=== PATIENT | male | born 1975 | race Caucasian/White ===

== ENCOUNTER 2025-01-20 18:02 | Emergency (ER) | payer MEDICARE, SELFPAY ==
[2025-01-20 18:27] VITALS: BP 153/126; PULSE 107; RESP 18; TEMP 36.7; O2SAT 97
--- NOTE | 2025-01-20 18:58 | CTR_ITS ---
PROCEDURE INFORMATION: Exam: CT Head Without Contrast Exam date and time: 01/20/2025 7:07 PM Age: 49 years old Clinical indication: Altered mental status/memory loss; Confusion or disorientation; Additional info: AMS TECHNIQUE: Imaging protocol: Computed tomography of the head without contrast. Radiation optimization: All CT scans at this facility use at least one of these dose optimization techniques: automated exposure control; mA and/or kV adjustment per patient size (includes targeted exams where dose is matched to clinical indication); or iterative reconstruction. COMPARISON: No relevant prior studies available. RADIATION DOSE METRICS: Total DLP (mGy-cm): 1221.33 FINDINGS: Brain: Normal. No hemorrhage. Unremarkable white matter. No mass effect. Cerebral ventricles: No ventriculomegaly. Paranasal sinuses: Small mucous retention cysts in the right maxillary sinus. No fluid levels. Mastoid air cells: Visualized mastoid air cells are well aerated. Bones: Unremarkable. No acute fracture. Soft tissues: Unremarkable. CT/CT head wo con* [id number] IMPRESSION: No acute intracranial findings.
[2025-01-20 19:13] LABS: Basophils # 0.1 10^3/uL (0.0-0.1); Basophils % 0.5 %; Hematocrit 44.7 % (37-53); Lymphocytes # 1.8 10^3/uL (0.8-4.8); Mean Corpuscular HGB Conc 32.7 g/dL (30-55); Mean Corpuscular Hemoglobin 31.3 pg (27-33); Mean Corpuscular Volume 95.7 fl (82-101); Mean Platelet Volume 9.2 fL (7.4-10.4); Monocytes % 7.6 %; Neutrophils # 9.86 10^3/uL (1.8-7.7); Neutrophils % 77.5 %; Nucleated Red Blood Cells % 0 %; Platelet Count 292 10^3/cmm (157-399); Red Blood Count 4.67 10^6/uL (3.85-5.65); Red Cell Distribution Width 13.2 % (12.1-15.1); White Blood Count 12.72 10^3/uL (3.29-11.43)
--- NOTE | 2025-01-20 19:33 | W.ED.PSYCHS ---
HPI - Psych General: Chief Complaint: Psychiatric Symptoms Stated Complaint: mhe Time Seen by Provider: 01/20/25 18:23 History of Present Illness: 49-year-old male patient unknown to the emergency department over this system. He presents with bizarre erratic behavior. He is brought in by EMS. Supposedly he had made a suicidal statement, which he denies. He is tough to interview, as he is very distracted, and only answers some questions. His main complaint is that he has a tick embedded on his back. He denies fever or recent illness. He states that he is here for my shot, Invega sustain . He is not homicidal or suicidal. He does appear to talk to himself or other stimuli in the room. He states he would like to be discharged, and go to a homeless senior living. Physical Exam Const: COMMON NORMALS: no acute distress and alert EXAM LIMITATIONS: altered mental status and behavioral limitations GENERAL APPEARANCE: not ill appearing and not frail appearing ORIENTATION/CONSCIOUSNESS: Yes awake HENMT: COMMON NORMALS: normocephalic, atraumatic and Normal external nose present HEAD & SCALP: normocephalic and atraumatic FACE & SINUS: normal facial exam NOSE: Normal external nose present Eye: COMMON NORMALS: Equal, round and reactive pupils present and EOMs intact bilaterally PUPIL: Yes Equal, round and reactive pupils present Neck/C-Spine: COMMON NORMALS: full ROM GENERAL: Yes trachea midline Chest: CHEST: Yes Symmetrical chest wall rise Resp: COMMON NORMALS: normal respiratory effort, No use of accessory muscles and clear to auscultation bilaterally AUSCULTATION: clear to auscultation bilaterally Cardio: COMMON NORMALS: regular rate and regular rhythm RATE: regular rate RHYTHM: regular rhythm GI: INSPECTION: Yes normal to inspection Neuro: SENSORIUM/ORIENTATION: Yes alert Skin: NARRATIVE SKIN EXAM: Multiple insect bites on trunk. Tick embedded in the skin over right scapula. Course Vital Signs: Vital signs: Vital Signs Temperature 98.0 F 01/20/25 18:27 Pulse Rate 107 H 01/20/25 18:27 Respiratory Rate 18 01/20/25 18:27 Blood Pressure 153/126 01/20/25 18:27 Pulse Oximetry 97 01/20/25 18:27 Oxygen Delivery Me thod Room Air 01/20/25 18:27 MDM - Psych Medical Decision Making 49-year-old male with an unknown history to this hospital system. He is exhibiting quite bizarre behavior. He is responding to external stimuli. Having visual hallucinations. He is seeing dark shadows he says. He currently denies suicidal ideation. We spoke with his mother over the phone who was coming in to write an affidavit. She says that he was making suicidal statements at home, and she is afraid he will harm himself. He has not been regimented and has been noncompliant with his medication. She says that he has in the past been admitted around once a year after becoming noncompliant with his medications. They recently moved from [place]. Medically, he is quite stable. He has been mostly cooperative to this point. Laboratory is not remarkable. COVID flu RSV swabs are negative. Head CT and chest x-ray are nonacute. EKG is normal. Currently we do not have neuropsychiatry beds available at this facility. He will require transfer. Attempting to call facilities medically, he is stable. Lab Data 01/20/25 19:07 01/20/25 19:[address] 01/20/25 18:58 IMPRESSION: No acute intracranial findings. Chest X-Ray 01/20/25 20:33 IMPRESSION: No acute findings. Laboratory Results WBC 12.72 10^3/uL (3.29-11.43) H 01/20/25 19:07 RBC 4.67 10^6/uL (3.85-5.65) 01/20/25 19:07 Hgb 14.60 g/dL (11.27-16.99) 01/20/25 19:07 Hct 44.7 % (37-53) 01/20/25 19:07 MCV 95.7 fl (82-101) 01/20/25 19:07 MCH 31.3 pg (27-33) 01/20/25 19:07 MCHC 32.7 g/dL (30-55) 01/20/25 19:07 RDW 13.2 % (12.1-15.1) 01/20/25 19:07 Plt Count 292 10^3/cmm (157-399) 01/20/25 19:07 MPV 9.2 fL (7.4-10.4) 01/20/25 19:07 Neut % (Auto) 77.5 % 01/20/25 19:07 Lymph % (Auto) 14.0 % 01/20/25 19:07 [place] % (Auto) 7.6 % 01/20/25 19:07 Eos % (Auto) 0.0 % 01/20/25 19:07 Baso % (Auto) 0.5 % 01/20/25 19:07 Neut # (Auto) 9.86 10^3/uL (1.8-7.7) H 01/20/25 19:07 Lymph # (Auto) 1.8 10^3/uL (0.8-4.8) 01/20/25 19:07 [place] # (Auto) 1.0 10^3/uL (0.2-0.9) H 01/20/25 19:07 Eos # (Auto) 0.0 10^3/uL (0.0-0.8) 01/20/25 19:07 Baso # (Auto) 0.1 10^3/uL (0.0-0.1) 01/20/25 19:07 Nucleated RBC % (auto) 0 % 01/20/25 19:07 Nucleated RBCs # 0.0 /100WBC 01/20/25 19:07 Sodium 140 mmol/L (136-145) 01/20/25 19:07 Potassium 3.8 mmol/L (3.5-5.1) 01/20/25 19:07 Chloride 102 mmol/L (98-107) 01/20/25 19:07 Carbon Dioxide 27 mmol/L (22-29) 01/20/25 19:07 Anion Gap 14.8 (5-19) 01/20/25 19:07 BUN 11 mg/dL (6-20) 01/20/25 19:07 Creatinine 0.9 mg/dL (0.7-1.2) 01/20/25 19:07 GFR Calculation 90.1 mL/min (90-130) 01/20/25 19:07 Glucose 87 mg/dL (65-115) 01/20/25 19:07 Calculated Osmolality 289 mOsm/kg (285-295) 01/20/25 19:07 Calcium 9.8 mg/dL (8.5-10.5) 01/20/25 19:07 Total Bilirubin 0.2 mg/dL (0.15-1.2) 01/20/25 19:07 AST 16 U/L (0-40) 01/20/25 19:07 ALT 34 U/L (0-41) 01/20/25 19:07 Alkaline Phosphatase 51 U/L (40-130) 01/20/25 19:07 Total Protein 6.8 g/dL (6.6-8.7) 01/20/25 19:07 Albumin 4.0 g/dL (3.5-5.2) 01/20/25 19:07 Globulin 2.8 g/dL (1.3-4.6) 01/20/25 19:07 TSH 0.85 uIU/mL (0.27-4.20) 01/20/25 19:07 Amorphous Sediment Not Reportable 01/20/25 22:51 Salicylates < 0.3 mg/dL (3-10) L 01/20/25 19:07 Acetaminophen < 5.0 ug/mL (10-30) L 01/20/25 19:07 Ethyl Alcohol < 10 mg/dL (0-10) 01/20/25 19:07 Influenza A (PCR) Negative (Negative) 01/20/25 22:03 Influenza Type B (PCR) Negative (Negative) 01/20/25 22:03 RSV (PCR) Negative (Negative) 01/20/25 22:03 SARS-CoV-2 (PCR) Negative (Negative) 01/20/25 22:03 All radiology interpretation(s) finalized by discharge Discharge Plan Discharge Patient Disposition: Xfer Psychiatric Hosp Clinical Impression: Acute psychosis, Chronic schizophrenia, Suicidal ideation Condition: Stable Print Language: Uzbek Coding Level of Care Code ED Literature Teacher for Ingrid Simmons
[2025-01-20 19:42] LABS: Alanine Aminotransferase 34 U/L (0-41); Alkaline Phosphatase 51 U/L (40-130); Anion Gap 14.8 (5-19); Aspartate Amino Transferase 16 U/L (0-40); Blood Urea Nitrogen 11 mg/dL (6-20); Calcium 9.8 mg/dL (8.5-10.5); Carbon Dioxide 27 mmol/L (22-29); Chloride 102 mmol/L (98-107); Globulin 2.8 g/dL (1.3-4.6); Glomerular Filtration Rate 90.1 mL/min (90-130); Glucose 87 mg/dL (65-115); Osmolality Calculated 289 mOsm/kg (285-295); Potassium 3.8 mmol/L (3.5-5.1); Sodium 140 mmol/L (136-145); Thyroid Stimulating Hormone 0.85 uIU/mL (0.27-4.20); Total Bilirubin 0.2 mg/dL (0.15-1.2); Total Protein 6.8 g/dL (6.6-8.7)
[2025-01-20 19:48] LABS: Acetaminophen < 5.0 ug/mL (10-30); Alcohol Level < 10 mg/dL (0-10); Salicylate < 0.3 mg/dL (3-10)
--- NOTE | 2025-01-20 20:33 | XRR_ITS ---
PROCEDURE INFORMATION: Exam: XR Chest Exam date and time: 01/20/2025 8:35 PM Age: 49 years old Clinical indication: Screening exam; Other screening; Additional info: Medical clearance TECHNIQUE: Imaging protocol: Radiologic exam of the chest. Views: 1 view. COMPARISON: No relevant prior studies available. FINDINGS: Lungs: Unremarkable. No consolidation. Pleural spaces: Unremarkable. No pleural effusion. No pneumothorax. Heart/Mediastinum: Unremarkable. No cardiomegaly. Bones/joints: Unremarkable. XR/XR chest 1V portable [id number] IMPRESSION: No acute findings.
--- NOTE | 2025-01-20 22:00 | ECG_ITS ---
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 Measurements Intervals [place] Rate: 90 P: 59 WA: 177 QRS: 88 QRSD: 77 T: 51 QT: 334 QTc: 410 Interpretive Statements SINUS RHYTHM No previous ECG available for comparison Electronically Signed On 01-21-2025 09:16:20 CDT by Gavin Pacheco M.D. [id number]
--- NOTE | 2025-01-20 22:16 | PC.NURSE ---
96 Hour Hold Education provided to patient regarding placement under a 96 hour hold. Rights read to patient and left at bedside, security at bedside. When asked if patient had any questions, patient stated no, ma'am.
[2025-01-20] MEDS: nicotine 21 mg Patch 1 PATCH TRANSDERMA (22:26)
[2025-01-20 22:56] LABS: Add Urine Microscopic? NO
[2025-01-20 22:57] LABS: Influenza A NEGATIVE (Negative); Influenza B NEGATIVE (Negative); Respiratory Syncytial Virus Ce NEGATIVE (Negative); SARS-CoV-2 PCR NEGATIVE (Negative)
[2025-01-20 23:04] LABS: Bacteria Urine None Seen /hpf; Hyaline Casts Urine 0-4 /lpf; RBC Urine 0-2 /hpf (0-2); Squamous Epithelial Cell Urine 0-5 /hpf (0-5); WBC Urine 0-5 /hpf (0-5)
[2025-01-20 23:07] LABS: Amphetamines Screen Urine Negative (Negative); Barbiturates Screen Urine Negative (Negative); Benzodiazepines Screen Urine Negative (Negative); Cocaine Screen Urine Negative (Negative); Opiate Screen Urine Negative (Negative); PCP Screen Urine Negative (Negative); THC Screen Urine Positive (Negative)
[2025-01-20 23:11] LABS: Bilirubin Urine Negative (Negative); Blood Urine Negative (Negative); Charge for UA Resulting for Rev; Glucose Urine UA Negative (Normal); Ketones Urine Negative (Negative); Leukocyte Esterase Urine Negative (Negative); Nitrate Urine Negative (Negative); Protein Urine Negative (Negative); Specific Gravity, Urine 1.006 (1.005-1.030); Urine Appearance Clear (CLEAR); Urine Color Yellow (Yellow); Urobilinogen Urine 0.2 mg/dL (Negative); pH Urine 7.5 (5-7)
[2025-01-21 00:55] VITALS: BP 132/89; PULSE 88; RESP 16; O2SAT 98
--- NOTE | 2025-01-21 00:55 | PC.NURSE ---
Report called to Marcella Barrera RN at [facility]
--- NOTE | 2025-01-21 09:12 | PC.NURSE ---
pt currently sleeping in bed with 18 rpm and unlabored breathing.
[2025-01-21 09:36] VITALS: RESP 18; O2SAT 96
[2025-01-21 14:15] VITALS: BP 148/75; PULSE 91; O2SAT 99
== END 2025-01-21 14:15 ==
PROVIDERS: Emergency Medicine; Emergency Provider Family Medicine
DX: F20.89 Other schizophrenia (principal); R45.851 Suicidal ideations; Z11.52 Encounter for screening for COVID-19
CPT/HCPCS: 70450; 71045; 80053; 80306; 80307; 81003; 84443; 85025; 87637; 93005; 99285; J9999

== ENCOUNTER 2025-03-20 11:05 | Inpatient (IN) | payer MEDICARE, SELFPAY ==
--- NOTE | 2025-03-20 11:07 | ECG_ITS ---
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 Measurements Intervals [place] Rate: 72 P: 60 DC: 193 QRS: 82 QRSD: 89 T: 60 QT: 384 QTc: 421 Interpretive Statements SINUS RHYTHM Compared to ECG 01/20/2025 22:00:19 No significant changes Electronically Signed On 03-21-2025 08:55:02 CDT by Gavin Pacheco M.D. [id number] [id number]
[2025-03-20 11:09] VITALS: BP 142/97; PULSE 86; RESP 18; TEMP 36.8; O2SAT 94; BMI 22.9
--- NOTE | 2025-03-20 11:33 | ED.C_ITS ---
HPI - Psych 2 General: Chief Complaint: Psychiatric Symptoms Stated Complaint: MHE, 96 Time Seen by Provider: 03/20/25 11:07 History of Present Illness: 50-year-old man who presents to the [facility] room by ambulance with a 96-hour hold from [facility]. Report is he is going through psychosis. He is mumbling and incoherent. Does not answer questions. He was here a couple months ago with similar type behavior. He was not admitted at that time. Related Data Home Medications ?Medication ?Instructions ?Recorded ?Confirmed Unable to Assess 01/21/25 03/20/25 Allergies Allergy/AdvReac Type Severity Reaction Status Date / Time No Known Allergies Allergy Unverified 03/20/25 12:04 Review of Systems 2 General: Reports: ROS unobtainable due to mental status Physical Exam 2 Narrative: EXAM NARRATIVE: General: Alert. no acute distress Skin: Warm, dry Head: Normocephalic, atraumatic. Neck: Supple, trachea midline. Eye: Extraocular movements are intact. Ears, nose, mouth and throat: Oral mucosa moist. Cardiovascular: Regular rate and rhythm, Normal peripheral perfusion. Respiratory: Lungs are clear to auscultation, respirations are non-labored, breath sounds are equal, Symmetrical chest wall expansion. Gastrointestinal: Soft, Nontender, Non distended Musculoskeletal: Normal ROM, no deformity. Neurological: No focal neurological deficit observed. Psychiatric: Patient is mumbling incoherently. Course 2 Vital Signs: Vital signs: Vital Signs Temperature 98.3 F 03/20/25 11:09 Pulse Rate 86 03/20/25 11:09 Respiratory Rate 18 03/20/25 11:09 Blood Pressure 142/97 03/20/25 11:09 Pulse Oximetry 94 03/20/25 11:09 Oxygen Delivery Me thod Room Air 03/20/25 11:09 MDM - Psych Medical Decision Making Medical decision making: Differential diagnosis for patient with reported psychosis with plan for psychiatric admission including but not limited to and based on the above HPI, review of systems and physical exam: concerns for infection, alcohol intoxication, cardiac issues or other medical problems prior to psychiatric admission. Orders placed to evaluate differential diagnosis based on the above differential, HPI and physical exam labwork, ekg ordered to evaluate the pathologies and to clear the patient medically prior to psychiatric admission Lab Review: Laboratory results were reviewed and interpreted by myself the emergency room physician. - Medically cleared. - EKG shows no ischemic changes. - Blood alcohol level is negative, as well as salicylate and Tylenol. - Drug screen is positive for marijuana - No signs of infection, urinalysis clear and white count is not elevated - No anemia. - BUN and creatinine are within normal limits. I reviewed the patient's medical record. He has had 1 previous ER visit with similar type behavior in the past and was discharged home at that time. Consultation: I spoke with Dr. Urbano who is on-call for the hospital service who agrees to admission. Assessment and plan: Psychosis ?96-hour hold was placed. -Admission to neuropsychiatric unit for continued evaluation and treatment. - All lab work was reviewed and interpreted personally by myself, the ER physician - Evaluation and treatment of this problem were appropriate in the emergency setting Lab Data 03/20/25 11:30 03/20/25 11:30 Laboratory Results WBC 9.13 10^3/uL (3.29-11.43) 03/20/25 11:30 RBC 4.29 10^6/uL (3.85-5.65) 03/20/25 11:30 Hgb 13.20 g/dL (11.27-16.99) 03/20/25 11:30 Hct 41.5 % (37-53) 03/20/25 11:30 MCV 96.7 fl (82-101) 03/20/25 11:30 MCH 30.8 pg (27-33) 03/20/25 11:30 MCHC 31.8 g/dL (30-55) 03/20/25 11:30 RDW 14.6 % (12.1-15.1) 03/20/25 11:30 Plt Count 274 10^3/cmm (157-399) 03/20/25 11:30 MPV 9.1 fL (7.4-10.4) 03/20/25 11:30 Neut % (Auto) 60.4 % 03/20/25 11:30 Lymph % (Auto) 29.6 % 03/20/25 11:30 [place] % (Auto) 8.9 % 03/20/25 11:30 Eos % (Auto) 0.0 % 03/20/25 11:30 Baso % (Auto) 0.8 % 03/20/25 11:30 Neut # (Auto) 5.52 10^3/uL (1.8-7.7) 03/20/25 11:30 Lymph # (Auto) 2.7 10^3/uL (0.8-4.8) 03/20/25 11:30 [place] # (Auto) 0.8 10^3/uL (0.2-0.9) 03/20/25 11:30 Eos # (Auto) 0.0 10^3/uL (0.0-0.8) 03/20/25 11:30 Baso # (Auto) 0.1 10^3/uL (0.0-0.1) 03/20/25 11:30 Nucleated RBC % (auto) 0 % 03/20/25 11:30 Nucleated RBCs # 0.0 /100WBC 03/20/25 11:30 Sodium 142 mmol/L (136-145) 03/20/25 11:30 Potassium 4.0 mmol/L (3.5-5.1) 03/20/25 11:30 Chloride 106 mmol/L (98-107) 03/20/25 11:30 Carbon Dioxide 25 mmol/L (22-29) 03/20/25 11:30 Anion Gap 15.0 (5-19) 03/20/25 11:30 BUN 12 mg/dL (6-20) 03/20/25 11:30 Creatinine 0.6 mg/dL (0.7-1.2) L 03/20/25 11:30 GFR Calculation 143.2 mL/min (90-130) H 03/20/25 11:30 Glucose 116 mg/dL (65-115) H 03/20/25 11:30 Calculated Osmolality 295 mOsm/kg (285-295) 03/20/25 11:30 Calcium 9.1 mg/dL (8.5-10.5) 03/20/25 11:30 Total Bilirubin 0.2 mg/dL (0.15-1.2) 03/20/25 11:30 AST 12 U/L (0-40) 03/20/25 11:30 ALT 16 U/L (0-41) 03/20/25 11:30 Alkaline Phosphatase 52 U/L (40-130) 03/20/25 11:30 Total Protein 6.9 g/dL (6.6-8.7) 03/20/25 11:30 Albumin 4.0 g/dL (3.5-5.2) 03/20/25 11:30 Globulin 2.9 g/dL (1.3-4.6) 03/20/25 11:30 TSH 0.58 uIU/mL (0.27-4.20) 03/20/25 11:30 Urine Color Yellow (Yellow) 03/20/25 11:23 Urine Appearance Clear (CLEAR) 03/20/25 11:23 Urine pH 7.0 (5-7) 03/20/25 11:23 Ur Specific [place] 1.005 (1.005-1.030) 03/20/25 11:23 Urine Protein Negative (Negative) 03/20/25 11:23 Urine Glucose (UA) Negative (Normal) 03/20/25 11:23 Urine Ketones Negative (Negative) 03/20/25 11:23 Urine Blood Negative (Negative) 03/20/25 11:23 Urine Nitrate Negative (Negative) 03/20/25 11:23 Urine Bilirubin Negative (Negative) 03/20/25 11:23 Urine Urobilinogen 0.2 mg/dL (Negative) 03/20/25 11:23 Ur Leukocyte Esterase Negative (Negative) 03/20/25 11:23 Urine RBC 0-2 /hpf (0-2) 03/20/25 11:23 Urine WBC 0-5 /hpf (0-5) 03/20/25 11:23 Ur Squamous Epith Cells 0-5 /hpf (0-5) 03/20/25 11:23 Amorphous Sediment Not Reportable 03/20/25 11:23 Urine Bacteria None seen /hpf (NONE) 03/20/25 11:23 Hyaline Casts 0-4 /lpf H 03/20/25 11:23 Salicylates < 0.3 mg/dL (3-10) L 03/20/25 11:30 Urine Opiates Screen Negative ng/mL (Negative) 03/20/25 11:23 Acetaminophen < 5.0 ug/mL (10-30) L 03/20/25 11:30 Ur Barbiturates Screen Negative ng/mL (Negative) 03/20/25 11:23 Ur Phencyclidine Scrn Negative ng/mL (Negative) 03/20/25 11:23 Ur Amphetamines Screen Negative ng/mL (Negative) 03/20/25 11:23 U Benzodiazepines Scrn Negative ng/mL (Negative) 03/20/25 11:23 Urine Cocaine Screen Negative ng/mL (Negative) 03/20/25 11:23 U Marijuana (THC) Screen Positive ng/mL (Negative) H 03/20/25 11:23 Ethyl Alcohol < 10 mg/dL (0-10) 03/20/25 11:30 No radiology studies performed this visit Discharge Plan Discharge Patient Disposition: Admitted As Inpatient Clinical Impression: Acute psychosis Condition: Stable Coding Level of Care Code ED Business Development for Ingrid Simmons
[2025-03-20 11:38] LABS: Hematocrit 41.5 % (37-53); Hemoglobin 13.20 g/dL (11.27-16.99); Mean Corpuscular HGB Conc 31.8 g/dL (30-55); Mean Corpuscular Hemoglobin 30.8 pg (27-33); Mean Corpuscular Volume 96.7 fl (82-101); Nucleated Red Blood Cells % 0 %; Platelet Count 274 10^3/cmm (157-399); Red Blood Count 4.29 10^6/uL (3.85-5.65); White Blood Count 9.13 10^3/uL (3.29-11.43)
[2025-03-20 11:46] LABS: Glucose Urine UA Negative (Normal); Nitrate Urine Negative (Negative); Specific Gravity, Urine 1.005 (1.005-1.030)
[2025-03-20 11:48] LABS: Add Urine Microscopic? YES
[2025-03-20 11:53] LABS: PCP Screen Urine Negative (Negative)
--- NOTE | 2025-03-20 12:01 | PC.PHAR ---
Pt had medications sent to [facility] on 02/19/25. Pt never picked them up. New rx's on hold from 02/19/25 are: Haloperidol decanoate 100mg/ml-1ml im x30qlva Clorpromazine 25mg -75mg po tid Lisinopril 10mg-daily Hydrochlorothiazide 12.5mg daily White Petrolatum-apply topically tid No allergies listed on pt profile
[2025-03-20 12:15] LABS: Alanine Aminotransferase 16 U/L (0-41); Albumin Level 4.0 g/dL (3.5-5.2); Alkaline Phosphatase 52 U/L (40-130); Anion Gap 15.0 (5-19); Aspartate Amino Transferase 12 U/L (0-40); Blood Urea Nitrogen 12 mg/dL (6-20); Calcium 9.1 mg/dL (8.5-10.5); Carbon Dioxide 25 mmol/L (22-29); Chloride 106 mmol/L (98-107); Creatinine Clr Calc Pharmacy 153.4150; Globulin 2.9 g/dL (1.3-4.6); Glucose 116 mg/dL (65-115); Osmolality Calculated 295 mOsm/kg (285-295); Potassium 4.0 mmol/L (3.5-5.1); Sodium 142 mmol/L (136-145); Thyroid Stimulating Hormone 0.58 uIU/mL (0.27-4.20); Total Protein 6.9 g/dL (6.6-8.7)
[2025-03-20 12:23] LABS: Acetaminophen < 5.0 ug/mL (10-30); Alcohol Level < 10 mg/dL (0-10); Salicylate < 0.3 mg/dL (3-10)
[2025-03-20 12:55] VITALS: BP 145/87; PULSE 81; RESP 17; O2SAT 95
--- NOTE | 2025-03-20 13:08 | PC.NURSE ---
96 hr rights reviewed with pt @1128 with assistance of [facility] credit risk officer Molina Mackey. All education reviewed with pt at this time. No verbalized concerns mentioned to this HS about hold parameters. However, pt did seem to understand hold, but also had jumbled words towards end part of each sentence. HS left a patient copy of rights with pt @bedside. Pt provided a milk and had a sandwich. No other needs assessed at this time.
[2025-03-20 15:02] VITALS: BP 135/93; BP 137/94; PULSE 68; PULSE 86; RESP 18; TEMP 36.4; O2SAT 97
[2025-03-20 20:00] VITALS: BP 136/81; PULSE 71; RESP 20; TEMP 36.7; O2SAT 95
[2025-03-20 22:00] VITALS: BP 136/81; PULSE 78; RESP 20; TEMP 36.7; O2SAT 95
[2025-03-21 06:00] VITALS: BP 125/73; PULSE 74; RESP 18; TEMP 36.4; O2SAT 95
--- NOTE | 2025-03-21 08:46 | NUR.SHIFT ---
Pt states that he slept okay He states that he doesn't have any anxiety of depression, he is just in here because his mother couldn't afford to buy the pills this month. He denies SI/HI or hallucinations. No reports of pain. He is calm and cooperative with assessment.
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
[2025-03-21] MEDS: paliperidone ER 6 mg Tablet PO (13:52)
[2025-03-21 14:00] VITALS: BP 145/105; PULSE 87; RESP 17; TEMP 36.6; O2SAT 97
[2025-03-21 20:30] VITALS: BP 144/97; PULSE 91; RESP 19; TEMP 36.7; O2SAT 96
[2025-03-22 06:00] VITALS: BP 143/91; PULSE 92; RESP 16; TEMP 36.5; O2SAT 94
[2025-03-22] MEDS: paliperidone ER 6 mg Tablet PO (08:48)
--- NOTE | 2025-03-22 09:00 | PC.NURSE ---
Pt. came up to signee and said he cut his legs off and decided to regrow them because he wanted a son.
[2025-03-22 14:00] VITALS: BP 122/78; PULSE 92; RESP 16; TEMP 36.6; O2SAT 94
--- NOTE | 2025-03-22 15:19 | P.NPUPN_ITS ---
Subjective NPU 2 Subjective: 50-year-old male with schizophrenia admi tted with psychosis with disorganized thinking and disorganized behavior on admission. Patient continued to have evidence of illogical thoughts as he had stated that he was crawling body parts that were replacing other body parts. He reports that he was sure that his thoughts were yellow but possibly blue. The patient had not been aggressive. He had reported no side effects from his Invega at this time and had indicated that he had previously done better on this medication but admitted to not having taken his medication for several months. Mental Status Exam 2 MSE Comments: Patient was a disheveled white male slightly overweight who was somewhat paranoid on interview with poor hygiene and normal gait. There was evidence of mild psychomotor agitation. His speech was productive and easier to understand with the use of nonsequiters with normal volume appreciated. His mood was described as allright. His affect was mood incongruent and somewhat irritable. His thought process was nonlinear and showed evidence of looseness of associations. His thought content showed no evidence of homicidal or suicidal ideation. There was evidence of delusional thinking. He did appear to be responding to internal stimuli and endorsed hearing a voice. Bizarre delusions appreciated. His attention span was poor. He was alert and oriented to person and place along with the year and month but not date or day of the week. His recent and remote memory appeared poor. His insight is poor. His judgment appeared poor. His impulse control appeared impaired. Vitals/I&O/Wt Last Vital Signs Temp 98 F 03/22/25 14:00 Pulse 92 03/22/25 14:00 Resp 16 03/22/25 14:00 BP 122/78 03/22/25 14:00 Pulse Ox 94 03/22/25 14:00 O2 Del Method Room Air 03/22/25 06:00 Data NPU 03/20/25 11:30 03/20/25 11:30 A&P Assessment and plan (1) Schizophrenia, paranoid type: Plan 50-year-old male with a history of schizophrenia currently not taking medications with paranoia and auditory hallucinations along with disorganized thinking. He was agreeable with restarting Invega sustenna IM to target psychosis. #1.? Engage patient in individual milieu and group therapy. #2?? Recommend sober living treatment at the highest level of care to which the patient is willing to commit #3??? Start oral invega 6mg daily with Invega 234mg IM to be given today or tommorow. #4?? TO-15 minute checks? #5?? Will attempt to gather collateral information PDMP PDMP Reviewed: Not Reviewed Involuntary Hold Information 2 Hold Status: Legal Status: 96 Hour Hold Date/Time Hold Expires: 03/27/25 @ 11:19 Attestations NPU 2 Medical Necessity Statement*: Inpatient hospitalization is medically necessary and deemed to be the clinically appropriate intervention at this time. Medications will be adjusted and initiated as indicated.? The patient?s likely length of stay is 7-10 days. ? Coding Level of Care Code Acute Code for Chg Fwd Diagnoses Schizophrenia, paranoid type F20.0
[2025-03-22] MEDS: paliperidone palmitate 234 mg Syringe IM (16:17)
[2025-03-22 20:56] VITALS: BP 121/80; PULSE 90; RESP 18; TEMP 37.1; O2SAT 95
[2025-03-23 06:00] VITALS: BP 114/76; PULSE 90; RESP 16; TEMP 37.1; O2SAT 96
[2025-03-23] MEDS: paliperidone ER 6 mg Tablet PO (08:18)
[2025-03-23] MEDS: diphenhydrAMINE 50 mg/mL SDV 1mL IM (11:31)
[2025-03-23] MEDS: LORazepam 1 MG/0.5 ML injection 2 MG IM (11:32)
[2025-03-23] MEDS: haloperidol inj 5 mg/mL INJ 1 mL IM (11:33)
--- NOTE | 2025-03-23 12:57 | PC.NURSE ---
PRN MED PT GIVEN 5MG HALDOL IM ,2 MG ATIVAN IM, AND 50MG BENADRYL IM, PT WAS GETTING, ANXIOUS, AND GETTING MORE ANGRY WITH STAFF, WE ASK PT IF HE WANTED MEDS AND PT SAID LIGHT ME UP. PT TOOK SHOT WITH NO RESISTANCE, WILL CONTINUE TO MONITOR.
[2025-03-23 14:00] VITALS: BP 120/83; PULSE 95; RESP 18; TEMP 36.6; O2SAT 97
--- NOTE | 2025-03-23 17:02 | P.NPUPN_ITS ---
Subjective NPU 2 Subjective: 50-year-old male with schizophrenia admi tted with psychosis with disorganized thinking and disorganized behavior on admission. The patient reported no side effects from his medication regimen. He continued to be somewhat guarded. He had required additional as needed medications for agitation today. He continued to report feeling that his body part was fading away and being replaced by another body. He reported that he was from a special group of people that had mahoney of conversion. Mental Status Exam 2 MSE Comments: Patient was a disheveled white male slightly overweight who was somewhat paranoid on interview with poor hygiene and normal gait. There was evidence of mild psychomotor agitation. His speech was productive and easier to understand with the use of nonsequiters with normal volume appreciated. His mood was described as good. His affect was subdued today. His thought process was linear but derailed quickly. His thought content showed no evidence of homicidal or suicidal ideation. There was evidence of bizarre delusions. He did appear to be responding to internal stimuli and endorsed hearing a voice. His attention span was poor. He was alert and oriented to person and place along with the year and month but not date or day of the week. His recent and remote memory appeared poor. His insight is poor. His judgment appeared poor. His impulse control appeared impaired. Vitals/I&O/Wt Last Vital Signs Temp 97.8 F 03/23/25 14:00 Pulse 95 03/23/25 14:00 Resp 18 03/23/25 14:00 BP 120/83 03/23/25 14:00 Pulse Ox 97 03/23/25 14:00 O2 Del Method Room Air 03/23/25 06:00 Data NPU 03/20/25 11:30 03/20/25 11:30 A&P Assessment and plan (1) Schizophrenia, paranoid type: Plan 50-year-old male with a history of schizophrenia currently not taking medications with paranoia and auditory hallucinations along with disorganized thinking. He was agreeable with restarting Invega sustenna IM to target psychosis. #1.? Engage patient in individual milieu and group therapy. #2?? Recommend sober living treatment at the highest level of care to which the patient is willing to commit #3??? Continue oral invega 6mg daily with Invega 234mg IM given on 03/22/25. #4?? TO-15 minute checks? #5?? Will attempt to gather collateral information PDMP PDMP Reviewed: Not Reviewed Involuntary Hold Information 2 Hold Status: Legal Status: 96 Hour Hold Date/Time Hold Expires: 03/27/25 @ 11:19 Attestations NPU 2 Medical Necessity Statement*: Inpatient hospitalization is medically necessary and deemed to be the clinically appropriate intervention at this time. Medications will be adjusted and initiated as indicated.? The patient?s likely length of stay is 5-7 days. ? Coding Level of Care Code Acute Code for Chg Fwd Diagnoses Schizophrenia, paranoid type F20.0
[2025-03-23 19:55] VITALS: RESP 18
--- NOTE | 2025-03-23 19:55 | PC.NURSE ---
Patient refused nurse notified.
[2025-03-24 06:00] VITALS: BP 133/91; PULSE 98; RESP 18; TEMP 36.6; O2SAT 97; BMI 22.9
[2025-03-24] MEDS: paliperidone ER 6 mg Tablet PO (07:49)
[2025-03-24 14:00] VITALS: BP 125/90; PULSE 97; RESP 18; TEMP 36.7; O2SAT 97
[2025-03-24] MEDS: diphenhydrAMINE 50 mg/mL SDV 1mL IM (14:21)
[2025-03-24] MEDS: haloperidol inj 5 mg/mL INJ 1 mL IM (14:21)
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
[2025-03-24] MEDS: LORazepam 1 MG/0.5 ML injection 2 MG IM (14:22)
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
[2025-03-24 20:01] VITALS: BP 126/90; PULSE 122; RESP 18; TEMP 36.7; O2SAT 96
[2025-03-25 06:00] VITALS: BP 130/88; PULSE 98; RESP 18; TEMP 36.6; O2SAT 97
[2025-03-25] MEDS: paliperidone ER 6 mg Tablet PO (10:14)
[2025-03-25 14:00] VITALS: BP 123/87; PULSE 108; RESP 18; TEMP 36.4; O2SAT 96
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
[2025-03-25 20:26] VITALS: BP 132/95; PULSE 83; RESP 16; TEMP 36.3; O2SAT 98
[2025-03-26 06:00] VITALS: BP 141/99; PULSE 96; RESP 17; TEMP 36.3; O2SAT 96
[2025-03-26] MEDS: paliperidone ER 6 mg Tablet PO (08:08)
--- NOTE | 2025-03-26 13:39 | P.NPUPN_ITS ---
Subjective NPU 2 Subjective: 50-year-old male with schizophrenia admi tted with psychosis with disorganized thinking and disorganized behavior on admission. The patient had reported improved mood. Patient was more redirectable with less vocal outbursts appreciated. The patient reports that he is thinking [place] right now . 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 He had also reported that he was trying to regrow his hips. 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 Mental Status Exam 2 MSE Comments: Patient was a disheveled white male slightly overweight who was less paranoid on interview with improved hygiene and normal gait. There was evidence of mild psychomotor agitation. His speech was productive with normal volume appreciated. His mood was described as good. His affect was subdued today. His thought process was derailed and looseness of associations was prominent. His thought content showed no evidence of homicidal or suicidal ideation. There was evidence of bizarre ideas. He did not appear to be responding to internal stimuli and denied any auditory or visual hallucinations. His attention span was variable. He was alert and oriented to person and place along with the year and month but not date or day of the week. His recent and remote memory appeared poor. His insight is poor. His judgment appeared poor. His impulse control appeared impaired. Vitals/I&O/Wt Last Vital Signs Temp 97.4 F L 03/26/25 06:00 Pulse 96 03/26/25 06:00 Resp 17 03/26/25 06:00 BP 141/99 03/26/25 06:00 Pulse Ox 96 03/26/25 06:00 O2 Del Method Room Air 03/26/25 06:00 Data NPU 03/20/25 11:30 03/20/25 11:30 A&P Assessment and plan 1. Schizophrenia, paranoid type: Plan: 50-year-old male with a history of schizophrenia currently not taking medications with paranoia and auditory hallucinations along with disorganized thinking. He was agreeable with restarting Invega sustenna IM to target psychosis. #1.? Engage patient in individual milieu and group therapy. #2?? Recommend sober living treatment at the highest level of care to which the patient is willing to commit #3??? Continue oral invega 6mg daily with Invega 234mg IM given on 03/22/25. Invega IM 156mg due on 03/27/25. Continue zyprexa at 5mg at night. #4?? TO-15 minute checks? #5?? Will attempt to gather collateral information PDMP PDMP Reviewed: Not Reviewed Involuntary Hold Information 2 Hold Status: Legal Status: 96 Hour Hold Date/Time Hold Expires: 03/27/25 @ 11:19 Attestations NPU 2 Medical Necessity Statement*: Inpatient hospitalization is medically necessary and deemed to be the clinically appropriate intervention at this time. Medications will be adjusted and initiated as indicated.? The patient?s likely length of stay is 5-7 days. ? Coding Level of Care Code Acute Code for Chg Fwd Diagnoses Schizophrenia, paranoid type F20.0
[2025-03-26 14:00] VITALS: BP 136/98; PULSE 94; RESP 17; O2SAT 96
[2025-03-26 19:52] VITALS: BP 113/74; PULSE 62; RESP 16; TEMP 36.7; O2SAT 95
[2025-03-27 06:00] VITALS: BP 113/76; PULSE 67; RESP 16; TEMP 36.5; O2SAT 97
[2025-03-27] MEDS: paliperidone ER 6 mg Tablet PO (08:48)
[2025-03-27] MEDS: paliperidone palmitate 156 mg Syringe IM (10:50)
[2025-03-27 14:00] VITALS: BP 156/94; PULSE 89; RESP 18; TEMP 36.6; O2SAT 97
--- NOTE | 2025-03-27 16:03 | W.PM.NPUPNS ---
Subjective NPU Subjective: Patient presented today reporting that things are going okay. We discussed conversation with his mother reporting that his current presentation on the medications represents a significant improvement and she is excited to see how he does on this shot long-term. We discussed the likelihood of discharge by this weekend as we allow the Abilify to continue to take effect. He denied any side effects to this medication. Mental Status Exam MSE Comments: Patient was a disheveled white male slightly overweight who was less paranoid on interview with improved hygiene and normal gait. There was evidence of mild psychomotor agitation. His speech was productive with normal volume appreciated. His mood was described as good. His affect was subdued today. His thought process was derailed and looseness of associations was prominent. His thought content showed no evidence of homicidal or suicidal ideation. There was evidence of bizarre ideas. He did not appear to be responding to internal stimuli and denied any auditory or visual hallucinations. His attention span was variable. He was alert and oriented to person and place along with the year and month but not date or day of the week. His recent and remote memory appeared poor. His insight is poor. His judgment appeared poor. His impulse control appeared impaired. Vitals/I&O/Wt Last Vital Signs Temp 98 F 03/27/25 14:00 Pulse 89 03/27/25 14:00 Resp 18 03/27/25 14:00 BP 156/94 03/27/25 14:00 Pulse Ox 97 03/27/25 14:00 O2 Del Method Room Air 03/27/25 06:00 Data NPU 03/20/25 11:30 03/20/25 11:30 A&P Assessment and plan 1. Schizophrenia, paranoid type: Plan: 50-year-old male with a history of schizophrenia currently not taking medications with paranoia and auditory hallucinations along with disorganized thinking. He was agreeable with restarting Invega sustenna IM to target psychosis. 1.? Engage patient in individual milieu and group therapy. 2. Recommend sober living treatment at the highest level of care to which the patient is willing to commit 3. Continue oral invega 6mg daily with Invega 234mg IM given on 03/22/25. Invega IM 156mg due on 03/29/2025 but given early today 03/27/2025. Continue zyprexa at 5mg at night. 4. TO-15 minute checks? 5. Will attempt to gather collateral information. Mother reporting that him on the Invega injection as represented a vast improvement and she is supportive of the idea of him possibly discharging at the end of this week. PDMP PDMP Reviewed: Not Reviewed Involuntary Hold Information Hold Status: Legal Status: 96 Hour Hold Date/Time Hold Expires: 03/27/25 @ 11:19 Attestations NPU Medical Necessity Statement*: Inpatient hospitalization is medically necessary the clinically appropriate intervention at this time. We will monitor/initiate medications as indicated.? The patient?s likely length of stay is 5-7 days. ? Coding Level of Care Code Acute Code for [facility] Fwd Diagnoses Schizophrenia, paranoid type F20.0
[2025-03-27 19:56] VITALS: BP 123/74; PULSE 78; RESP 17; TEMP 36.7; O2SAT 93
[2025-03-28 06:00] VITALS: BP 134/97; PULSE 105; RESP 18; TEMP 36.6; O2SAT 97
[2025-03-28] MEDS: paliperidone ER 6 mg Tablet PO (08:28)
[2025-03-28 14:00] VITALS: BP 153/101; PULSE 82; RESP 18; TEMP 36.3; O2SAT 99
[2025-03-28 20:07] VITALS: BP 108/72; PULSE 95; RESP 17; TEMP 36.8; O2SAT 94
--- NOTE | 2025-03-28 20:31 | P.NPUPN_ITS ---
Subjective NPU 2 Subjective: Patient presented today reporting that things are going fairly well. He reports that he has been happy with the medication and is looking forward to discharge this weekend. We discussed the fact that his mother feels like he is doing much better and he has been doing it anytime that she can remember as she looks forward to him leaving with a plan for continuing the long-acting injectable. We discussed the tentative plan for discharge on Tuesday and she did agree to proceed as is documented in this note. He denied any side effects to the medication. Mental Status Exam 2 MSE Comments: Patient was a disheveled white male slightly overweight who was less paranoid on interview with improved hygiene and normal gait. There was evidence of mild psychomotor agitation. His speech was productive with normal volume appreciated. His mood was described as good. His affect was subdued today. His thought process was derailed and looseness of associations was prominent. His thought content showed no evidence of homicidal or suicidal ideation. There was evidence of bizarre ideas. He did not appear to be responding to internal stimuli and denied any auditory or visual hallucinations. His attention span was variable. He was alert and oriented to person and place along with the year and month but not date or day of the week. His recent and remote memory appeared poor. His insight is poor. His judgment appeared poor. His impulse control appeared impaired. Vitals/I&O/Wt Last Vital Signs Temp 98.3 F 03/28/25 20:07 Pulse 95 03/28/25 20:07 Resp 17 03/28/25 20:07 BP 108/72 03/28/25 20:07 Pulse Ox 94 03/28/25 20:07 O2 Del Method Room Air 03/28/25 20:07 Data NPU 03/20/25 11:30 03/20/25 11:30 A&P Assessment and plan 1. Schizophrenia, paranoid type: Plan: 50-year-old male with a history of schizophrenia currently not taking medications with paranoia and auditory hallucinations along with disorganized thinking. He was agreeable with restarting Invega sustenna IM to target psychosis. 1.? Engage patient in individual milieu and group therapy. 2. Recommend sober living treatment at the highest level of care to which the patient is willing to commit 3. Continue oral invega 6mg daily with Invega 234mg IM given on 7/4/25. Invega IM 156mg due on 03/29/2025 but given early today 03/27/2025. Continue zyprexa at 5mg at night. 4. TO-15 minute checks? 5. Will attempt to gather collateral information. Mother reporting that him on the Invega injection as represented a vast improvement and she is supportive of the idea of him possibly discharging at the end of this week. PDMP PDMP Reviewed: Not Reviewed Involuntary Hold Information 2 Hold Status: Legal Status: 96 Hour Hold Date/Time Hold Expires: 03/27/25 @ 11:19 Attestations NPU 2 Medical Necessity Statement*: Inpatient hospitalization is medically necessary the clinically appropriate intervention at this time. We will monitor/initiate medications as indicated.? The patient?s likely length of stay is 2-4 days. ? Coding Level of Care Code Acute Code for Chg Fwd Diagnoses Schizophrenia, paranoid type F20.0
[2025-03-29 06:00] VITALS: BP 129/90; PULSE 98; RESP 17; TEMP 36.6; O2SAT 98
[2025-03-29] MEDS: paliperidone ER 6 mg Tablet PO (08:49)
--- NOTE | 2025-03-29 09:49 | DCPLANNER ---
IMM was printed and given to pt and rights explained and copy placed in his file.
--- NOTE | 2025-03-29 13:10 | W.PM.NPUPNS ---
Subjective NPU Subjective: Patient presented today reporting that things are going fine. We discussed the fact that his mother continues to say that this is as good as she see him in some time and that she is excited about him being able to leave. He reports being very happy about the plan for discharge tomorrow and denied any specific issues otherwise. He denied any side effects to medication. Mental Status Exam MSE Comments: Patient was a disheveled white male slightly overweight who was less paranoid on interview with improved hygiene and normal gait. There was evidence of mild psychomotor agitation. His speech was productive with normal volume appreciated. His mood was described as good, glad to be going home.. His affect was brighter today. His thought process was less derailed. His thought content showed no evidence of homicidal or suicidal ideation. There was evidence of bizarre ideas. He did not appear to be responding to internal stimuli and denied any auditory or visual hallucinations. His attention span was variable. He was alert and oriented to person and place along with the year and month but not date or day of the week. His recent and remote memory appeared poor. His insight is poor. His judgment appeared poor. His impulse control appeared impaired. Vitals/I&O/Wt Last Vital Signs Temp 97.8 F 03/29/25 06:00 Pulse 98 03/29/25 06:00 Resp 17 03/29/25 06:00 BP 129/90 03/29/25 06:00 Pulse Ox 98 03/29/25 06:00 O2 Del Method Room Air 03/29/25 06:00 Data NPU 03/20/25 11:30 03/20/25 11:30 A&P Assessment and plan 1. Schizophrenia, paranoid type: Plan: 50-year-old male with a history of schizophrenia currently not taking medications with paranoia and auditory hallucinations along with disorganized thinking. He was agreeable with restarting Invega sustenna IM to target psychosis. 1.? Engage patient in individual milieu and group therapy. 2. Recommend sober living treatment at the highest level of care to which the patient is willing to commit 3. Continue oral invega 6mg daily with Invega 234mg IM given on 03/22/25. Invega IM 156mg due on 03/29/2025 but given early today 03/27/2025. Continue zyprexa at 5mg at night. 4. TO-15 minute checks? 5. Will attempt to gather collateral information. Mother reporting that him on the Invega injection as represented a vast improvement and she is supportive of the idea of him possibly discharging at the end of this week. Tentative plan for discharge tomorrow. PDMP PDMP Reviewed: Not Reviewed Involuntary Hold Information Hold Status: Legal Status: 96 Hour Hold Date/Time Hold Expires: 03/27/25 @ 11:19 Attestations NPU Medical Necessity Statement*: Inpatient hospitalization is medically necessary the clinically appropriate intervention at this time. We will monitor/initiate medications as indicated.? The patient?s likely length of stay is 1-3 days. ? Coding Level of Care Code Acute Code for [facility] Fwd Diagnoses Schizophrenia, paranoid type F20.0
[2025-03-29 14:00] VITALS: BP 130/93; PULSE 95; RESP 18; TEMP 36.7; O2SAT 96
[2025-03-29 20:18] VITALS: BP 121/77; PULSE 85; RESP 18; TEMP 36.3; O2SAT 96
[2025-03-30 06:00] VITALS: BP 134/92; PULSE 96; RESP 17; TEMP 36.4; O2SAT 98
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
[2025-03-30 12:43] VITALS: BP 134/92; PULSE 96; RESP 17; TEMP 36.4; O2SAT 98
[2025-03-30 14:00] VITALS: BP 114/79; PULSE 102; RESP 18; TEMP 36.6; O2SAT 96
--- NOTE | 2025-03-30 14:08 | PC.NURSE ---
Called Olanzapine script to [facility] in [place] per Dr. Mcnamara
== END 2025-03-30 15:12 | disposition home or self-care (01) | DRG 885 ==
LOC: ER 11:35 → NP 12:42
PROVIDERS: Admitting Provider Psychiatry & Neurology Psychiatry; Emergency Provider Emergency Medicine; Visit Provider Psychiatry & Neurology Psychiatry
DX: F20.0 Paranoid schizophrenia (principal); E66.9 Obesity, unspecified; Z68.23 Body mass index [BMI] 23.0-23.9, adult; Z81.8 Family history of other mental and behavioral disorders
CPT/HCPCS: 36415; 80053; 80306; 80307; 81001; 84443; 85025; 93005; 96372; 97150; 97165; 99285; J1200; J1630; J2060; J9999

== ENCOUNTER 2025-04-11 10:16 | Inpatient (IN) | payer MEDICARE, SELFPAY ==
--- NOTE | 2025-04-11 10:17 | ECG_ITS ---
[facility] Date: 2025-[facility]11 Pat Name: Hardeep Morales Department: Room: Gender: Male Sap Bw Bi Developer: : 1975 Requested By: Blaire Shaikh Order Number: [id number] Reading MD: Measurements Intervals Wolverine Rate: 98 P: 64 [place]: 177 QRS: 89 QRSD: 89 T: 57 QT: 350 QTc: 448 Interpretive Statements SINUS RHYTHM [email or web address]
[2025-04-11 10:20] VITALS: BP 142/89; PULSE 115; RESP 18; TEMP 36.7; O2SAT 96
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
[2025-04-11 10:38] LABS: Hematocrit 42.1 % (37-53); Hemoglobin 13.80 g/dL (11.27-16.99); Mean Corpuscular HGB Conc 32.8 g/dL (30-55); Mean Corpuscular Hemoglobin 31.1 pg (27-33); Mean Corpuscular Volume 94.8 fl (82-101); Nucleated Red Blood Cells % 0 %; Platelet Count 289 10^3/cmm (157-399); Red Blood Count 4.44 10^6/uL (3.85-5.65); White Blood Count 7.76 10^3/uL (3.29-11.43)
[2025-04-11 11:11] LABS: Alanine Aminotransferase 38 U/L (0-41); Albumin Level 4.4 g/dL (3.5-5.2); Alkaline Phosphatase 54 U/L (40-130); Anion Gap 16.8 (5-19); Aspartate Amino Transferase 24 U/L (0-40); Blood Urea Nitrogen 12 mg/dL (6-20); Calcium 9.6 mg/dL (8.5-10.5); Carbon Dioxide 24 mmol/L (22-29); Chloride 102 mmol/L (98-107); Globulin 3.0 g/dL (1.3-4.6); Glucose 163 mg/dL (65-115); Osmolality Calculated 291 mOsm/kg (285-295); Potassium 3.8 mmol/L (3.5-5.1); Sodium 139 mmol/L (136-145); Thyroid Stimulating Hormone 0.92 uIU/mL (0.27-4.20); Total Protein 7.4 g/dL (6.6-8.7)
[2025-04-11 11:13] LABS: Acetaminophen < 5.0 ug/mL (10-30); Alcohol Level < 10 mg/dL (0-10); Salicylate < 0.3 mg/dL (3-10)
[2025-04-11 11:27] LABS: Glucose Urine UA Negative (Normal); Nitrate Urine Negative (Negative); Specific Gravity, Urine 1.006 (1.005-1.030)
[2025-04-11 11:32] LABS: Add Urine Microscopic? YES
[2025-04-11 11:33] LABS: PCP Screen Urine Negative (Negative)
--- NOTE | 2025-04-11 13:41 | PC.NURSE ---
96 hr rights reviewed with pt @[id number] with assistance of [facility] electoral officer Molina Mackey. All education reviewed with pt a this time. Pt copy left @bedside with pt. Pt provided a sandwich and water. No further needs.
[2025-04-11] MEDS: LORazepam 1 MG/0.5 ML injection 2 MG IM (14:47)
[2025-04-11] MEDS: water for injection-sterile 10 ML 1.2 ML (14:47)
[2025-04-11 15:42] VITALS: BP 142/101; PULSE 85; O2SAT 95
[2025-04-11 17:55] VITALS: BP 117/77; PULSE 97; O2SAT 95
[2025-04-11 20:26] VITALS: BP 141/96; PULSE 103; RESP 20; TEMP 36.9; O2SAT 94
[2025-04-11 20:40] VITALS: BP 141/96; PULSE 103; RESP 20; TEMP 36.9; O2SAT 94
[2025-04-12 06:00] VITALS: BP 130/81; PULSE 98; RESP 17; TEMP 37.1; O2SAT 94
[2025-04-12 14:00] VITALS: BP 130/90; PULSE 88; RESP 16; TEMP 37.1; O2SAT 99
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
[2025-04-12 20:09] VITALS: BP 127/76; PULSE 70; RESP 18; TEMP 36.7; O2SAT 95
[2025-04-13 06:00] VITALS: BP 113/75; PULSE 76; RESP 17; TEMP 36.7; O2SAT 95
[2025-04-13] MEDS: paliperidone ER 6 mg Tablet PO (12:32)
[2025-04-13 14:00] VITALS: BP 166/108; PULSE 93; RESP 18; TEMP 37; O2SAT 97
--- NOTE | 2025-04-13 14:22 | PC.NURSE ---
Pt up at the nurses station and stated my mom has had 150,000 babies and my father has has 10,000 babies with his sperm . Pt also stated that he feels that he is a white man. 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 Pt stated that he feels like we are supposed to smoke coffee with alcohol.
[2025-04-13] MEDS: haloperidol inj 5 mg/mL INJ 1 mL IM (16:59)
[2025-04-13] MEDS: diphenhydrAMINE 50 mg/mL SDV 1mL IM (17:00)
[2025-04-13] MEDS: LORazepam 1 MG/0.5 ML injection 2 MG IM (17:00)
[2025-04-13 19:57] VITALS: BP 105/71; PULSE 108; RESP 18; TEMP 36.7; O2SAT 95
--- NOTE | 2025-04-13 21:28 | P.NPUPN_ITS ---
Subjective NPU 2 Subjective: Patient presents today reporting that he is fine. However he continued to have derailment of thought per staff reports and direct observation. He is speaking in volumes per staff but having limited functional dialogue. This was noted on direct observation. We discussed that we would be adding the oral Invega after discussion of the risks, benefits and alternatives he appeared to understand it and agreed to proceed as is documented in this note. There were no signs or symptoms of side effects to his medications. Mental Status Exam 2 MSE Comments: Patient was a disheveled white male slightly overweight who was less paranoid on interview with improved hygiene and normal gait. There was evidence of mild psychomotor agitation. His speech was productive with normal volume appreciated. His mood was described as fine. His affect was subdued today. His thought process was derailed and looseness of associations was prominent. His thought content showed no evidence of homicidal or suicidal ideation. There was evidence of bizarre ideas. He did not appear to be responding to internal stimuli and denied any auditory or visual hallucinations. His attention span was variable. He was alert and oriented to person and place along with the year and month but not date or day of the week. His recent and remote memory appeared poor. His insight is poor. His judgment appeared poor. His impulse control appeared impaired. Vitals/I&O/Wt Last Vital Signs Temp 98.1 F 04/13/25 19:57 Pulse 108 H 04/13/25 19:57 Resp 18 04/13/25 19:57 BP 105/71 04/13/25 19:57 Pulse Ox 95 04/13/25 19:57 O2 Del Method Room Air 04/13/25 19:57 Weight last 48 hrs Weight 77.111 kg Data NPU 04/11/25 10:32 04/11/25 10:32 A&P Assessment and plan 1. Schizophrenia, paranoid type: Plan: This is a 50-year-old male with a history of schizophrenia currently having been discharged about 2-1/2 weeks ago on Invega Sustenna presents reporting that he is taking his medication as prescribed but is still symptomatic per his outpatient supports. 1.? Engage patient in individual milieu and group therapy. 2. Recommend sober living treatment at the highest level of care to which the patient is willing to commit 3. Restarted oral invega 6mg daily and increase his injection to Invega 234mg IM. May consider giving the injection early/prior to discharge. Continue zyprexa at 5mg at night. 4. TO-15 minute checks? 5. Will attempt to gather collateral information. PDMP PDMP Reviewed: Not Reviewed Involuntary Hold Information 2 Hold Status: Legal Status: 96 Hour Hold Date/Time Hold Expires: 04/17/25 @ 11:09 Attestations NPU 2 Medical Necessity Statement*: Inpatient hospitalization is medically necessary the clinically appropriate intervention at this time. We will monitor/initiate medications as indicated. T he patient?s likely length of stay is 5-7 days. ? Coding Level of Care Code Acute Code for g Fwd Diagnoses Schizophrenia, paranoid type F20.0
[2025-04-14 00:10] LABS: Alcohol, Methyl NONE DETECTED (NONE DETECTED); Volatile Analysis Performed On WHOLE BLOOD
[2025-04-14 06:00] VITALS: BP 118/74; PULSE 67; RESP 17; TEMP 36.6; O2SAT 94
[2025-04-14] MEDS: paliperidone ER 6 mg Tablet PO (08:37)
--- NOTE | 2025-04-14 08:43 | W.PM.NPUPNS ---
Subjective NPU Subjective: Patient presented today reporting that he is doing okay. Staff with continued reports of odd behavior and strange conversations which is noteworthy on direct observation. He continues to be somewhat isolative but very odd in interaction per staff reports and direct observation. We discussed the fact that Dr. Urbano would be back tomorrow and would continue with his care and we continued to discuss the plan to increase his Invega through the oral dose currently and the increased IM dose when executed. He denied any side effects of the medication. Mental Status Exam MSE Comments: Patient was a disheveled white male slightly overweight who was less paranoid on interview with improved hygiene and normal gait. There was evidence of mild psychomotor agitation. His speech was productive with normal volume appreciated. His mood was described as fine. His affect was subdued and odd. His thought process was derailed and looseness of associations was prominent. His thought content showed no evidence of homicidal or suicidal ideation.There was evidence of bizarre ideas. He did not appear to be responding to internal stimuli and denied any auditory or visual hallucinations. His attention span was variable. He was alert and oriented to person and place along with the year and month but not date or day of the week. His recent and remote memory appeared poor. His insight is poor. His judgment appeared poor. His impulse control appeared impaired. Vitals/I&O/Wt Last Vital Signs Temp 97.8 F 04/14/25 06:00 Pulse 67 04/14/25 06:00 Resp 17 04/14/25 06:00 BP 118/74 04/14/25 06:00 Pulse Ox 94 04/14/25 06:00 O2 Del Method Room Air 04/14/25 06:00 Weight last 48 hrs Weight 77.111 kg Data NPU 04/11/25 10:32 04/11/25 10:32 A&P Assessment and plan 1. Schizophrenia, paranoid type: Plan: This is a 50-year-old male with a history of schizophrenia currently having been discharged about 2-1/2 weeks ago on Invega Sustenna presents reporting that he is taking his medication as prescribed but is still symptomatic per his outpatient supports. 1.? Engage patient in individual milieu and group therapy. 2. Recommend sober living treatment at the highest level of care to which the patient is willing to commit 3. Restarted oral invega 6mg daily and increase his injection to Invega 234mg IM. May consider giving the injection early/prior to discharge. Continue zyprexa at 5mg at night. 4. TO-15 minute checks? 5. Will attempt to gather collateral information. PDMP PDMP Reviewed: Not Reviewed Involuntary Hold Information Hold Status: Legal Status: 96 Hour Hold Date/Time Hold Expires: 04/17/25 @ 11:09 Attestations NPU Medical Necessity Statement*: Inpatient hospitalization is medically necessary the clinically appropriate intervention at this time. We will monitor/initiate medications as indicated. The patient?s likely length of stay is 5-7 days. ? Coding Level of Care Code Acute Code for [facility] Fwd Diagnoses Schizophrenia, paranoid type F20.0
[2025-04-14 14:00] VITALS: BP 144/98; PULSE 106; RESP 18; TEMP 37.2; O2SAT 96
[2025-04-14 21:43] VITALS: BP 137/91; PULSE 95; RESP 18; TEMP 36.5; O2SAT 98
[2025-04-15 06:00] VITALS: BP 140/91; PULSE 91; RESP 19; TEMP 36.6; O2SAT 97
[2025-04-15] MEDS: paliperidone ER 6 mg Tablet PO (08:06)
[2025-04-15 10:33] VITALS: PULSE 107; RESP 20; O2SAT 98
[2025-04-15 10:40] VITALS: PULSE 102
[2025-04-15 14:00] VITALS: BP 141/100; PULSE 94; RESP 18; TEMP 36.8; O2SAT 96
--- NOTE | 2025-04-15 18:26 | P.NPUPN_ITS ---
Subjective NPU 2 Subjective: 50-year-old male admitted with schizophr enia and disorganized thinking and behavior. The patient had reported no side effects from his medication. He had continued to report that he was sleeping fine but just needed to remove tattoos from his body in order for him to be able to walk over the leg. He had been pleasant but fairly disorganized in regards to comments. He had reported no thoughts of hurting himself or others. He had required prompting for completion of activities of daily living. He did not appear to have any aggression here on the unit yesterday. Mental Status Exam 2 MSE Comments: Patient was a disheveled white male slightly overweight who was paranoid on interview with improved hygiene and normal gait. There was evidence of mild psychomotor agitation. His speech was productive with normal volume appreciated. His mood was described as fine. His affect was subdued and odd. His thought process was derailed and looseness of associations was prominent. His thought content showed no evidence of homicidal or suicidal ideation.There was evidence of bizarre ideas. He did not appear to be responding to internal stimuli and denied any auditory or visual hallucinations. His attention span was variable. He was alert and oriented to person and place along with the year and month but not date or day of the week. His recent and remote memory appeared poor. His insight is poor. His judgment appeared poor. His impulse control appeared impaired. Vitals/I&O/Wt Last Vital Signs Temp 98.3 F 04/15/25 14:00 Pulse 94 04/15/25 14:00 Resp 18 04/15/25 14:00 BP 141/100 04/15/25 14:00 Pulse Ox 96 04/15/25 14:00 O2 Del Method Room Air 04/15/25 10:33 Weight last 48 hrs Weight 77.111 kg Data NPU 04/11/25 10:32 04/11/25 10:32 A&P Assessment and plan 1. Schizophrenia, paranoid type: Plan: This is a 50-year-old male with a history of schizophrenia currently having been discharged about 2-1/2 weeks ago on Invega Sustenna presents reporting that he is taking his medication as prescribed but is still symptomatic per his outpatient supports. 1.? Engage patient in individual milieu and group therapy. 2. Recommend sober living treatment at the highest level of care to which the patient is willing to commit 3. Restarted oral invega 6mg daily and increase his injection to Invega 234mg IM. May consider giving the injection early/prior to discharge. zyprexa will be reinitiated tonight at 5mg. 4. TO-15 minute checks? 5. Will attempt to gather collateral information. PDMP PDMP Reviewed: Not Reviewed Involuntary Hold Information 2 Hold Status: Legal Status: 96 Hour Hold Date/Time Hold Expires: 04/17/25 @ 11:09 Attestations NPU 2 Medical Necessity Statement*: Inpatient hospitalization is medically necessary the clinically appropriate intervention at this time. We will monitor/initiate medications as indicated. T he patient?s likely length of stay is 5-7 days. ? Coding Level of Care Code Acute Code for Chg Fwd Diagnoses Schizophrenia, paranoid type F20.0
[2025-04-15 19:18] VITALS: BP 155/80; PULSE 87; RESP 17; TEMP 36.3; O2SAT 95
[2025-04-16 06:00] VITALS: BP 114/77; PULSE 63; RESP 16; O2SAT 95
[2025-04-16] MEDS: paliperidone ER 6 mg Tablet PO (09:09)
[2025-04-16 14:00] VITALS: BP 112/78; PULSE 109; RESP 18; TEMP 36.3; O2SAT 97
--- NOTE | 2025-04-16 17:33 | P.NPUPN_ITS ---
Subjective NPU 2 Subjective: 50-year-old male admitted with schizophr enia and disorganized thinking and behavior. The patient had been redirectable. He had reported some concerns about a tattoo on his body and reported that he was thinking about whether he should find his own place when he leaves here. He had acknowledged having difficulty with living with his mother but remained appreciative about her visits here. Patient was redirectable and reported sleeping better last night. He continued to have unusual thoughts about his legs being amputated but reported no current pain or problems with walking. Mental Status Exam 2 MSE Comments: Patient was a pleasant white male with improved hygiene and normal gait. There was no evidence of psychomotor agitation or psychomotor retardation today. His speech was productive with normal volume appreciated. His mood was described as okay. His affect was subdued and odd. His thought process was more linear but eventually derailed. His thought content showed no evidence of homicidal or suicidal ideation. There was evidence of bizarre ideas of legs being amputated. He did not appear to be responding to internal stimuli and denied any auditory or visual hallucinations. His attention span was variable. He was alert and oriented to person and place along with the year and month but not date or day of the week. His recent and remote memory appeared poor. His insight is poor. His judgment appeared poor. His impulse control appeared to be improving. Vitals/I&O/Wt Last Vital Signs Temp 97.4 F L 04/16/25 14:00 Pulse 109 H 04/16/25 14:00 Resp 18 04/16/25 14:00 BP 112/78 04/16/25 14:00 Pulse Ox 97 04/16/25 14:00 O2 Del Method Room Air 04/16/25 06:00 Data NPU 04/11/25 10:32 04/11/25 10:32 A&P Assessment and plan 1. Schizophrenia, paranoid type: Plan: This is a 50-year-old male with a history of schizophrenia currently having been discharged about 2-1/2 weeks ago on Invega Sustenna presents reporting that he is taking his medication as prescribed but is still symptomatic per his outpatient supports. 1.? Engage patient in individual milieu and group therapy. 2. Recommend sober living treatment at the highest level of care to which the patient is willing to commit 3. Restarted oral invega 6mg daily and increase his MONTHLY injection of Invega 234mg IM due in a few weeks. May consider giving the injection early/prior to discharge. Continue zyprexa at 5mg at night. 4. TO-15 minute checks? 5. Will attempt to gather collateral information. PDMP PDMP Reviewed: Not Reviewed Involuntary Hold Information 2 Hold Status: Legal Status: 96 Hour Hold Date/Time Hold Expires: 04/17/25 @ 11:09 Attestations NPU 2 Medical Necessity Statement*: Inpatient hospitalization is medically necessary the clinically appropriate intervention at this time. We will monitor/initiate medications as indicated. T he patient?s likely length of stay is 5-7 days. ? Coding Level of Care Code Acute Code for [facility] Fwd Diagnoses Schizophrenia, paranoid type F20.0
[2025-04-16 19:40] VITALS: BP 117/78; PULSE 80; RESP 16; TEMP 36.4; O2SAT 92
[2025-04-17 06:00] VITALS: BP 117/82; PULSE 65; RESP 16; O2SAT 99
[2025-04-17] MEDS: paliperidone ER 6 mg Tablet PO (09:20)
[2025-04-17 14:00] VITALS: BP 151/90; PULSE 95; RESP 18; TEMP 36.8; O2SAT 96
--- NOTE | 2025-04-17 15:55 | P.NPUPN_ITS ---
Subjective NPU 2 Subjective: 50-year-old male admitted with schizophr enia and disorganized thinking and behavior. The patient reports feeling better. He reports no side effects from his medication. Patient reported improved sleep. Patient denied any feelings of hopelessness or worthlessness. He reports that he was looking forward to going home soon. Mental Status Exam 2 MSE Comments: Patient was a pleasant white male with improved hygiene and normal gait. There was no evidence of psychomotor agitation or psychomotor retardation today. His speech was productive with normal volume appreciated. His mood was described as okay. His affect was brighter today. His thought process was more linear with no derailment appreciated today. His thought content showed no evidence of homicidal or suicidal ideation. He did not appear to be responding to internal stimuli and denied any auditory or visual hallucinations. His attention span was variable. He was alert and oriented to person and place and time. His recent and remote memory appeared limited. His insight is poor. His judgment appeared better. His impulse control appeared to be improving. Vitals/I&O/Wt Last Vital Signs Temp 98.2 F 04/17/25 14:00 Pulse 95 04/17/25 14:00 Resp 18 04/17/25 14:00 BP 151/90 04/17/25 14:00 Pulse Ox 96 04/17/25 14:00 O2 Del Method Room Air 04/16/25 19:40 Data NPU 04/11/25 10:32 04/11/25 10:32 A&P Assessment and plan 1. Schizophrenia, paranoid type: Plan: This is a 50-year-old male with a history of schizophrenia currently having been discharged about 2-1/2 weeks ago on Invega Sustenna presents reporting that he is taking his medication as prescribed but is still symptomatic per his outpatient supports. 1.? Engage patient in individual milieu and group therapy. 2. Recommend sober living treatment at the highest level of care to which the patient is willing to commit 3. Restarted oral invega 6mg daily and increase his MONTHLY injection of Invega 234mg IM due in a few weeks. . Continue zyprexa at 5mg at night. 4. TO-15 minute checks? 5. Will attempt to gather collateral information. PDMP PDMP Reviewed: Not Reviewed Involuntary Hold Information 2 Hold Status: Legal Status: 96 Hour Hold Date/Time Hold Expires: 04/17/25 @ 11:09 Attestations NPU 2 Medical Necessity Statement*: Inpatient hospitalization is medically necessary the clinically appropriate intervention at this time. We will monitor/initiate medications as indicated. T he patient?s likely length of stay is 1-2 days. ? Coding Level of Care Code Acute Code for g Fwd Diagnoses Schizophrenia, paranoid type F20.0
[2025-04-17 19:23] VITALS: BP 159/109; PULSE 75; RESP 18; TEMP 36.4; O2SAT 96
[2025-04-18 06:00] VITALS: BP 115/74; PULSE 78; RESP 18; TEMP 36.7; O2SAT 95
[2025-04-18] MEDS: paliperidone ER 6 mg Tablet PO (08:32)
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
[2025-04-18 13:19] VITALS: BP 150/98; PULSE 89; RESP 17; TEMP 36.6; O2SAT 96
--- NOTE | 2025-04-18 13:36 | DCPLANNER ---
IMM was explained to pt and copy put in pts file.
[2025-04-18 14:00] VITALS: BP 150/98; PULSE 89; RESP 17; TEMP 36.6; O2SAT 96
== END 2025-04-18 15:32 | disposition home or self-care (01) | DRG 885 ==
LOC: ER 12:23 → ER IP 12:32 → NP 19:08
PROVIDERS: Admitting Provider Psychiatry & Neurology Psychiatry; Emergency Provider Emergency Medicine; Visit Provider Psychiatry & Neurology Psychiatry
DX: F20.0 Paranoid schizophrenia (principal); F17.210 Nicotine dependence, cigarettes, uncomplicated
CPT/HCPCS: 36415; 80053; 80306; 80307; 80320; 81001; 84443; 85025; 93005; 94640; 94664; 96372; 97150; 97165; 99285; J1200; J1630; J2060; J3486; J7613; J9999